=== PATIENT | female | born 1975 | race Caucasian/White ===

== ENCOUNTER 2019-04-09 03:02 | Emergency (ER) | payer MEDICAID ==
[~2019-04-09] VITALS: Ht 160 cm; Wt 131.7 kg
--- NOTE | 2019-04-09 05:39 | NUR ---
Jina everett in [facility] - 04/09/19 at 0539 by SAVANA Drag
--- NOTE | 2019-04-09 05:40 | NUR ---
pt to room from lobby
--- NOTE | 2019-04-09 05:58 | NUR ---
CHART UP FOR RECHECK
--- NOTE | 2019-04-09 06:20 | NUR ---
TASK RN: D/C INSTRUCTIONS PROVIDED TO PT.
[2019-04-09 06:22] VITALS: BP 110/66
== END 2019-04-09 06:23 | disposition home or self-care (01) ==
LOC: ED 06:17
DX: L03.115 Cellulitis of right lower limb (principal)
CPT/HCPCS: 99284

== ENCOUNTER 2020-12-26 20:08 | Emergency (ER) | payer MEDICAID ==
[~2020-12-26] VITALS: Ht 157.5 cm; Wt 120.0 kg
[2020-12-26 20:33] VITALS: BP 115/79
[2020-12-26 21:21] LABS: BASOPHILS % (AUTO) 1 % (0-1); EOSINOPHILS % (AUTO) 6 % (1-7); LYMPHOCYTES % (AUTO) 32 % (22-44); MEAN CORPUSCULAR HEMOGLOBIN 29.1 pg (27.0-34.8); MEAN CORPUSCULAR HGB CONC 33.4 g/dL (32.4-35.8); MEAN PLATELET VOLUME 8.4 fL (7.4-10.4); MONOCYTES % (AUTO) 9 % (2-9); NEUTROPHILS % (AUTO) 52 % (42-75); PLATELET COUNT 218 x10^3/uL (130-400); RED BLOOD COUNT 4.83 x10^6/uL (3.82-5.3); RED CELL DISTRIBUTION WIDTH 15.3 % (9.6-15.2)
[2020-12-26 21:30] LABS: ALBUMIN 3.4 g/dL (3.4-5.0); ANION GAP 4 mmol/L (5-15); CALCIUM 9.3 mg/dL (8.5-10.1); CHLORIDE 105 mmol/L (98-107); CREATININE 0.81 mg/dL (0.55-1.02)
[2020-12-26 22:33] LABS: MICROSCOPIC INDICATED
--- NOTE | 2020-12-26 23:30 | NUR ---
AMBULATORY FROM TRIAGE
--- NOTE | 2020-12-26 23:55 | NUR ---
Patient/Caregiver given discharge instructions and they have confirmed that they understand the instructions. Patient ambulatory with steady gait. NAD, all questions answered appropriately, denies additional needs at this time. No personal belongings left in room after discharge.
== END 2020-12-26 23:58 | disposition home or self-care (01) ==
LOC: ED 20:13
DX: N30.00 Acute cystitis without hematuria (principal)
CPT/HCPCS: 36415; 80048; 81001; 82040; 84703; 85025; 87086; 99283